=== PATIENT | female | born 1995 | race Caucasian/White ===

== ENCOUNTER → 2021-02-12 | Outpatient (CLI) | payer MEDICARE, SELFPAY ==
[2021-02-12 11:40] VITALS: BMI 24.2
[2021-02-12 19:09] LABS: Probe Check PASS; Specimen Processing Control PASS
== END | disposition home or self-care (01) ==
LOC: LABSPEC 16:18
PROVIDERS: Visit Provider Physician Assistant
DX: R06.02 Shortness of breath (principal); R53.83 Other fatigue; R51.9 Headache, unspecified
CPT/HCPCS: 87635; U0005; U0003